=== PATIENT | female | born 1960 | race Caucasian/White ===

== ENCOUNTER 2023-08-06 13:56 | Outpatient (AMB) | payer OTHER, SELFPAY ==
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
== END 2023-08-06 15:02 | disposition home or self-care (01) ==
PROVIDERS: PCP Internal Medicine; Visit Provider Neurological Surgery
DX: M41.56 Other secondary scoliosis, lumbar region (principal); M54.16 Radiculopathy, lumbar region; Z98.1 Arthrodesis status
CPT/HCPCS: 99204

== ENCOUNTER → 2023-08-06 13:56 | Outpatient (BNVA) | payer OTHER, SELFPAY | PROVIDERS: PCP Internal Medicine; Visit Provider Neurological Surgery ==

== ENCOUNTER → 2023-10-29 13:33 | Outpatient (BNVA) | payer OTHER, SELFPAY | PROVIDERS: PCP Internal Medicine; Visit Provider Neurological Surgery ==

== ENCOUNTER 2024-02-18 | Outpatient (REF) | payer OTHER, SELFPAY ==
--- NOTE | 2024-02-18 | ECG_ITS ---
Test Reason : PRE OP Blood Pressure : / mmHG Vent. Rate : 076 BPM Atrial Rate : 076 BPM P-R Int : 174 ms QRS Dur : 088 ms QT Int : 392 ms P-R-T Axes : 065 039 066 degrees QTc Int : 441 ms Normal sinus rhythm Normal ECG No previous ECGs available Referred By: Mariaelena Garcia Electronically Signed By:LISA VASQUEZ
[2024-02-18 12:18] VITALS: BP 111/64; PULSE 82; RESP 18; O2SAT 98; BMI 25.3
--- NOTE | 2024-02-18 12:29 | HO.ANESPROP2 ---
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 PONV: good effect with scopolamine patch OSMANI: cannot tolerate CPAP PMFSH Active Problems Active Problems: All Active Problems Status post cervical spinal fusion (Acute) Lumbar radiculopathy (Acute) Scoliosis of lumbar region due to degenerative disease of spine in adult (Acute) Past Medical History Medical History (Updated 02/18/24 @ 12:15 by Rosio Lin RN) Cold-induced asthma Post-operative nausea and vomiting Thoracic outlet syndrome History of traumatic head injury Sleep apnea Low blood pressure Osteoporosis Renal calculi Degenerative disc disease, lumbar Degenerative disc disease, cervical IBS (irritable bowel syndrome) Fibromyalgia Migraines PTSD (post-traumatic stress disorder) Osteopenia Family History Family history of problems with anesthesia: No Surgical History Surgical History (Updated 02/18/24 @ 12:11 by Rosio Lin RN) Hx of knee surgery Hx of cardiac catheterization Hx of nasal septoplasty History of esophagogastroduodenoscopy (EGD) H/O colonoscopy History of colon resection Hx of appendectomy History of total knee arthroplasty Hx of repair of rotator cuff History of fusion of cervical spine Hx of lithotripsy Hx of cystoscopy Hx of cystoscopy History of Problems with Anesthesia: Yes (PONV) Social History Social History Are you a primary acute care assistant to a significant other at home: No Do you presently have visiting nurse or other home services: No Patient Tobacco Use Status: Never used Tobacco Use of substances other than those prescribed or required for medical reasons: No Have you been hit, kicked, punched, or otherwise hurt by someone within the past year? If so, by whom?: No Spiritual Healthcare Practices: none Scientologist Healthcare Practices: Christian Cultural Healthcare Practices: none Are you DNR?: No Advance Directives Information Provided: Yes (will bring copy DOS) Advance Directives on File: No Recently lost weight without trying: No Eating poorly because of decreased appetite: No Nutrition Risks: No Nutritional Risk FDLMP: n/a : No Poor oral hygiene: No (one crown upper left) Meds Allergies Allergy/AdvReac Type Severity Reaction Status Date / Time oxycodone [OXYCODONE] Allergy Intermediate HYPERACTIVE Unverified 02/18/24 12:13 celecoxib [From Celebrex] Allergy Mild Swelling Verified 02/18/24 12:13 prochlorperazine Allergy Mild DYSTONIA Unverified 11/16/19 17:30 [From Compazine] rofecoxib [From Vioxx] Allergy Mild SWELLING Unverified 11/16/19 17:30 erythromycin base AdvReac Mild DIARRHEA Unverified 11/16/19 17:30 [Erythromycin Base] Sulfa (Sulfonamide AdvReac Mild HEADACHES Unverified 11/16/19 17:30 Antibiotics) [Sulfa (Sulfonamides)] Home Medications ?Medication ?Instructions ?Recorded ?Confirmed ?Last Taken ?Type albuterol sulfate 90 mcg/actuation 1 puff inhalation Q4H PRN wheezing 02/17/24 02/18/24 Unknown History aerosol inhaler baclofen 10 mg tablet 10 mg PO BEDTIME 02/17/24 02/18/24 Unknown History bupropion HCl 300 mg 24 hr tablet, 300 mg PO QAM 02/17/24 02/18/24 Unknown History extended release calcium 600 mg (as carbonate)-vit 1 tab PO BID 02/17/24 02/18/24 Unknown History D3 20 mcg (800 unit) chewable tablet (Caltrate plus D) dextroamphetamine-amphetamine 10 1 tab PO BID 02/17/24 02/18/24 Unknown History mg tablet estradiol 0.025 mg/24 hr 1 patch topical 2XW 02/17/24 02/18/24 Unknown History semiweekly transdermal patch lorazepam 0.5 mg tablet 0.5 mg PO DAILY PRN anxiety 02/17/24 02/18/24 Unknown History magnesium oxide 400 mg PO QAM 02/17/24 02/18/24 Unknown History naproxen 500 mg tablet,delayed 500 mg PO Q12H PRN Pain 02/17/24 02/18/24 Unknown History release riboflavin (vitamin B2) 400 mg 400 mg PO DAILY 02/17/24 02/18/24 Unknown History tablet trazodone 100 mg tablet 100 mg PO BEDTIME 02/17/24 02/18/24 Unknown History tramadol 50 mg tablet 50 mg PO TID PRN pain 02/18/24 02/18/24 Unknown History Exam Height,Weight and Vital Signs: Height 5 ft 3 in Weight 64.7 kg Last Vital Signs Pulse 82 02/18/24 12:18 Resp 18 02/18/24 12:18 BP 111/64 02/18/24 12:18 Pulse Ox 98 02/18/24 12:18 O2 Del Method Room Air 02/18/24 12:18 Pertinent Lab Results Pertinent Lab Results: Lab Results 02/18/24 Range/Units 13:20 Blood Type O Positive Antibody Screen NEGATIVE CBC, BMP, PT/INR, PTT 01/2024 from outside lab WNL Narrative Narrative: EKG 01/2024 Vent. Rate : 076 BPM Atrial Rate : 076 BPM P-R Int : 174 ms QRS Dur : 088 ms QT Int : 392 ms P-R-T Axes : 065 039 066 degrees QTc Int : 441 ms Normal sinus rhythm Normal ECG No previous ECGs available Airway Neck ROM: Limited (s/p cervical fusion) Loose/Missing/Broken Teeth: No (Crowned) Heart: RRR Lungs: CTAB Assessment and Plan Assessment Anesthesia Assessment: Anesthesia Plan Discussed and PAT Visit Final Anesthetic Review Family History of Problems with Anesthesia: No History of Problems with Anesthesia: Yes (PONV)
== END 2024-02-18 00:01 | disposition home or self-care (01) ==
LOC: HO.PAT
PROVIDERS: Visit Provider Neurological Surgery
DX: Z01.818 Encounter for other preprocedural examination (principal); M41.56 Other secondary scoliosis, lumbar region
CPT/HCPCS: 86850; 86900; 86901; 93005

== ENCOUNTER → 2024-02-18 13:37 | Outpatient (BNV) | payer OTHER, SELFPAY | PROVIDERS: Admitting Provider Neurological Surgery; Visit Provider Internal Medicine | DX: M41.56 Other secondary scoliosis, lumbar region (principal); Z01.810 Encounter for preprocedural cardiovascular examination | CPT/HCPCS: 93010 ==

== ENCOUNTER 2024-07-04 14:25 | Outpatient (AMB) | payer OTHER, SELFPAY ==
--- NOTE | 2024-07-04 14:36 | A.SPINEOV_ITS ---
Intake Visit Reasons: Discuss sx Intake Note: Mrs. Spence is here to Discuss Surgery. 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: No Allergies oxycodone [OXYCODONE] Allergy (Intermediate, Verified 07/04/24 14:36) HYPERACTIVE celecoxib [From Celebrex] Allergy (Mild, Verified 07/04/24 14:36) Swelling prochlorperazine [From Compazine] Allergy (Mild, Verified 07/04/24 14:36) DYSTONIA rofecoxib [From Vioxx] Allergy (Mild, Verified 07/04/24 14:36) SWELLING erythromycin base [Erythromycin Base] Adverse Reaction (Mild, Verified 07/04/24 14:36) DIARRHEA Sulfa (Sulfonamide Antibiotics) [Sulfa (Sulfonamides)] Adverse Reaction (Mild, Verified 07/04/24 14:36) HEADACHES Assessment & Plan Assessment & Plan (1) Scoliosis of lumbar region due to degenerative disease of spine in adult: Code(s): M41.56 - Other secondary scoliosis, lumbar region Category: Medical Plan Karoline is a pleasant 64-year-old female previously evaluated by Dr. Mirza. He offered her a L3-4, L4-5 transkambin lumbar fusion. She comes in today with her significant other to asked several questions that she had prior to her surgery which is currently scheduled for 07/18/2024. They wanted to review the surgical procedure again, and asked several questions regarding the difference between surgery versus conservative measures such as intercept or MILD procedures. I extensively explained the surgery using her spine models in office. We also discussed the possibility of postoperative leg pain with the transkambin lumbar fusion approach. She reports that her and Dr. Mirza did discuss that she would not be a good candidate for OLIF as she has had several different abdominal surgeries including bowel resection. She understands that there is about a 33% chance of transient postoperative leg pain for L3-4, and about a 40% chance of transient postoperative leg pain with a L4-5. I answered all of her questions to the best of my ability. She wishes to proceed with surgery as planned. Brennen Mirza MD,PhD [facility] Coding Level of Care Code Est Pt Level 3 (85685) Diagnoses Scoliosis of lumbar region due to degenerative disease of spine in adult M41.56
--- OUTSIDE RECORDS SUMMARY | 2024-07-04 15:45 | XMS_ITS ---
Author Name [facility] Organization Unknown History of Medication Use Medication Directions Dispensed Refills Start Date End Date Stat doxycycline hyclate 50 mg capsule TAKE 1 CAPSULE BY MOUTH TWICE DAILY active escitalopram 10 mg tablet TAKE 1 TABLET BY MOUTH DAILY active hyoscyamine 0.125 mg sublingual tablet DISSOLVE 1 TABLET UNDER THE TONGUE TWICE DAILY NEEDED active Lyllana 0.025 mg/24 hr transdermal patch APPLY 1 PATCH TOPICALLY TO THE SKIN 2 TIMES A WEEK active omeprazole 20 mg capsule,delayed release TAKE 1 CAPSULE BY MOUTH TWICE DAILY active tramadol 50 mg tablet TAKE 1 TABLET BY MOUTH THREE TIMES DAILY NEEDED FOR PAIN active Vitamin B-2 100 mg tablet TAKE 4 TABLETS BY MOUTH EVERY DAY active Encounters Encounter Type Encounter Reason Primary Diagnosis Location Date Ambulatory [facility] 03/09/2023 Ambulatory [facility] 02/02/2023 Ambulatory [facility] 12/29/2022 Ambulatory [facility] 12/29/2022 Ambulatory [facility] 10/23/2022 Ambulatory [facility] 10/23/2022 Ambulatory [facility] 10/23/2022 Ambulatory [facility] 10/22/2022 Ambulatory [facility] 10/21/2022 Ambulatory [facility] 05/06/2022
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
--- OUTSIDE RECORDS SUMMARY | 2024-07-04 15:46 | XMS_ITS | Clinical Summary ---
Author Organization [facility] Address [address] [place] [address] Care Team Providers Care Relocation Coordinator Name Role Phone Kuldeep Russell MD Primary Care Provider [phone] Allergies Active Allergy Reactions Criticality Noted Date Comments Macrolides And Ketolides Other (See Comments) 11/24/2004 Oxycodone Other (See Comments) 02/08/2015 hyper Prochlorperazine 12/13/2009 Other reaction(s): Dystonia Rofecoxib Swelling 03/10/2012 Sulfa Antibiotics Other (See Comments) 11/24/2004 Medications Medication Sig Dispensed Refills Start Date End Date Status amphetamine-dextroamp hetamine (ADDERALL) 10 MG tablet TK 1 T PO BID 0 01/17/2020 Active baclofen (LIORESAL) 10 MG tablet TK 1 T PO 1 TIME A DAY PRN 0 01/11/2020 Active buPROPion (WELLBUTRIN XL) 300 MG 24 hr tablet TK 1 T PO D 0 11/28/2019 Active LINZESS 72 MCG CAPS TK 1 C PO QAM 0 12/19/2019 Ac tive LORazepam (ATIVAN) 0.5 MG tablet TK 1 T PO QD PRA 0 01/12/[address] 500 MG EC tablet TK 1 T PO BID PRF PAIN 0 01/23/2020 Active omeprazole (PriLOSEC) 20 MG capsule TK 1 C PO QD 0 01/22/2020 Active Riboflavin 400 MG TABS TK 1 T PO D 0 11/14/2019 Active traZODone (DESYREL) 100 MG tablet TK 1 T PO QHS 0 12/27/2019 Active magnesium oxide (MAG-OX) 400 MG tablet Take 1 tablet by mouth daily. 0 01/22/2021 Active gabapentin (Neurontin) 300 MG capsule Take 300mg for 3 days at bedtime. Please start 1 night prior to surgery 3 capsule 0 03/04/2021 Active HYDROcodone-acetamino phen (NORCO) 5-325 MG per tablet Take 1 tablet by mouth every 6 (six) hours as needed for pain. Do not start until after surgery 30 tablet 0 04/16/2021 Active Active Problems Problem Noted Date Diagnosed Date Articular cartilage disorder of knee 07/01/2020 Status post total right knee replacement 016 Osteoarthritis of right knee 05/28/2015 Acute pain of right knee 02/08/2015 Pain 03/10/2012 Overview: Pain Social History Tobacco Use Types Packs/Day Years Used Date Smoking Tobacco: Never Smokeless Tobacco: Never Sex and Gender Information Value Date Recorded Sex Assigned at Not on file Gender Identity Not on file Sexual Orientation Not on file Job Start Date Occupation Industry Not on file Not on file Not on file Last Filed Vital Signs Vital Sign Reading Time Taken Comments Blood Pressure - - Pulse - - Temperature - - Respiratory Rate - - Oxygen Saturation - - Inhaled Oxygen Concentration - - Weight 83.9 kg (185 lb) 09/22/2021 1:27 PM EDT Height 160 cm (5' 3 ) 09/22/2021 1:27 PM EDT Body Mass Index 32.77 09/22/2021 1:27 PM EDT Plan of Treatment Health Maintenance Due Date Last Done Comments Hepatitis C Screening 1960 COVID-19 Vaccine (#1) 1962 Depression Screening 1974 BMI Counseling 1980 Preventative Health Evaluation 1980 DTap / Tdap / Td (1 - Tdap) 1981 Cervical Cancer Screening (P ap Smear) 06/18/1983 Colon Cancer Screening (Colonoscopy) 06/18/2007 Breast Cancer Screening (Mammogram) 2012 Shingrix-Zoster Vaccine (1 of 2) 2012 Influenza Vaccine (#1) 2023 RSV Adult > 60+ Yrs or Pregn ant (1 - 1-dose 75+ series) 2037 Hepatitis B Vaccines Aged Out No long er eligible based on patient's age to complete this topic Pneumococcal Vaccine Aged Out No long er eligible based on patient's age to complete this topic RSV Ped < 20 months Aged Out No longe r eligible based on patient's age to complete this topic Care Teams Relocation Coordinator Relationship Specialty Start Date End Date Kuldeep Russell MD [address] [place] [address], [place] [address] PCP - General Internal Medicine 02/06/20
== END 2024-07-04 15:42 | disposition home or self-care (01) ==
LOC: HO.HNS 14:33
PROVIDERS: Visit Provider Physician Assistant
DX: M41.56 Other secondary scoliosis, lumbar region (principal)
CPT/HCPCS: 99213

== ENCOUNTER 2024-07-18 09:14 | Inpatient (IN) | payer OTHER, SELFPAY ==
[2024-07-14 12:15] VITALS: BP 97/51; PULSE 76; RESP 20; O2SAT 98; BMI 23.4
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
[2024-07-18] VITALS (9 sets, daily range): BP systolic 118–149; BP diastolic 66–78; PULSE 68–74; RESP 14–18; TEMP 36–36.4; O2SAT 94–98; BMI 24.6
--- NOTE | ~2024-07-18 | FL_ITS ---
EXAMINATION: FL GUIDANCE ONLY HISTORY: L3-L5 Transkambin Lumbar Interbody Fusion COMPARISON: None available. TECHNIQUE: Fluoroscopy time: 3.69 minutes. Cumulative Dose: 152 mGy. DAP: 50.28 mGym2 Images: 5. FINDINGS: AP and lateral fluoroscopic spot films of the lumbar spine demonstrate posterior fusion of L3-L5 with pedicle screws, spinal stabilization rods, and intervertebral spacers. FL/FL guidance in OR IMPRESSION: Fluoroscopy during procedure. Please see procedure report for additional information. Electronically signed by: Royce Varner MD 07/19/2024 07:16 AM EDT
--- NOTE | ~2024-07-18 | CT_ITS ---
CLINICAL HISTORY: s p lumbar fusion CT lumbar spine without contrast Comparison: None Findings: Spinal fusion hardware spans from L3-L5. Posterior spinal fusion rods and paired pedicle screws are identified at those levels. Interbody cage devices are seen at L3-4 and L4-5. No fracture of the surgical hardware. Posterolateral bone graft material has been placed. This is more posteriorly located on the right than on the left. On the right, extends into the posterior right paraspinal musculature in areas of the subcutaneous fat. Moderate convex left lumbar curvature with apex at L2-3. No acute fracture. Mild atelectasis within the visualized portion of the lung bases. No pleural effusion or pneumothorax. Prominent gaseous distention of the stomach measuring 20.0 x 11.2 cm in size. IMPRESSION: 1. Postoperative changes as above. 2. Marked gaseous distention of the stomach, possibly related to postoperative ileus. Correlation with any clinical findings to suggest gastric outlet obstruction is suggested. This document has been electronically signed by: Benjie Maza MD on 07/20/2024 09:54:09
[2024-07-18] MEDS: Lactated Ringers 500 ML 999 ML IV (09:52)
[2024-07-18] MEDS: Scopolamine 1.5 MG PATCH.TD.3 TRANSDERMA (09:52)
[2024-07-18] MEDS: Gabapentin 300 MG CAPSULE PO (09:53)
[2024-07-18] MEDS: methocarbamoL 750 MG TABLET PO (09:53)
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
--- OUTSIDE RECORDS SUMMARY | 2024-07-18 10:25 | XMS_ITS | Clinical Summary ---
Author Organization [facility] Address [address] [place] [address] Care Team Providers Care Cloth Dyeing Range Tender Name Role Phone Kuldeep Russell MD Primary Care Provider Allergies Active Allergy Reactions Criticality Noted Date [...] age to complete this topic Care Teams Cloth Dyeing Range Tender Relationship Specialty Start Date End Date Kuldeep Russell MD [address] [place] [address], [place] [address] PCP - General Internal Medicine 02/06/20
[2024-07-18] MEDS: Lactated Ringers 1,000 ML 100 ML IVCONT (11:13)
--- NOTE | 2024-07-18 12:35 | MHC.SHP ---
Pre-Procedural Eval Section A - 24 Hr Update-Section A only Date of Service: 07/18/24 The patient is an INPATIENT: No Changes since office visit: No Cold of Flu in the past 2 weeks, No New Medical Problems, No Changes in Medication and No Patient answered all questions The patient has been examined within 24 hours of the surgical procedure. The History & Physical has been completed within 30 days and I have reviewed it.: No Section B - Complete if H&P > 30 days Chief Complaint: S/P L3-5 Lumbar Fusion Allergies: Allergies Allergy/AdvReac Type Severity Reaction Status Date / Time oxycodone [OXYCODONE] Allergy Intermediate HYPERACTIVE Verified 07/18/24 09:36 (can have dilaudid, hydrocodone) celecoxib [From Celebrex] Allergy Mild Swelling Verified 07/18/24 09:36 prochlorperazine Allergy Mild DYSTONIA Verified 07/18/24 09:36 [From Compazine] rofecoxib [From Vioxx] Allergy Mild SWELLING Verified 07/18/24 09:36 erythromycin base AdvReac Mild DIARRHEA Verified 07/18/24 09:36 [Erythromycin Base] Sulfa (Sulfonamide AdvReac Mild HEADACHES Verified 07/18/24 09:36 Antibiotics) [Sulfa (Sulfonamides)] Review of Systems Sugical H&P ROS: Negative: Constitution, Cardiovascular, Respiratory, Neurological, Psychiatric, Hem-Onc, Allergic/Immunologic, Gastrointestinal, Genitourinary, Musculoskeletal, Integumentary, Endocrine and Eyes/Ears/Nose/Throat Exam Surgical H&P Exam: Normal: HEENT, Normal: Heart, Normal: Lungs, Normal: Extremities, Normal: Abdomen, Normal: Skin and Normal: Neurological (awake, alert,oriented x 3 ) Plan Diagnosis/Plan: Unchanged L3-4, L4-5 transkambin lumbar interbody fusion Time Spent With Patient Time: Total time managing care of this patient today __5__ minutes.
[2024-07-18] MEDS: ceFAZolin Sodium/Dextrose,Iso 2 GM/50 ML PIGGYBACK IV ×2 (14:00→19:03)
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
[2024-07-18] MEDS: Ketorolac Tromethamine 15 MG/ML VIAL IVPUSH (18:05)
[2024-07-18] MEDS: 0.9 % Sodium Chloride 1,000 ML 75 ML IVCONT (19:01)
[2024-07-18] MEDS: HYDROmorphone HCl 2 MG TABLET PO (19:10)
[2024-07-18] MEDS: Calcium + Vitamin D 250 MG TABLET PO (19:10)
[2024-07-18] MEDS: Amphetamine Mixed Salts 10 MG TABLET PO (19:11)
[2024-07-18] MEDS: Magnesium Oxide 400 MG TABLET PO (19:11)
[2024-07-18] MEDS: Baclofen 10 MG TABLET PO (19:11)
[2024-07-18] MEDS: Multivitamin TABLET 1 TAB PO (19:11)
[2024-07-18] MEDS: Docusate Sodium 100 MG CAPSULE PO (19:11)
[2024-07-18] MEDS: HYDROmorphone HCl 1 MG/ML SYRINGE IVPUSH (22:06)
[2024-07-18] MEDS: Acetaminophen 1,000 MG/100 ML PIGGYBACK 400 MG IV (22:36)
[2024-07-19] VITALS (7 sets, daily range): BP systolic 98–154; BP diastolic 53–70; PULSE 66–85; RESP 14–18; TEMP 36.1–37.2; O2SAT 93–98
[2024-07-19] MEDS: Ketorolac Tromethamine 15 MG/ML VIAL IVPUSH ×4 (00:51→23:46)
[2024-07-19] MEDS: HYDROmorphone HCl 2 MG TABLET 4 MG PO ×2 (02:30→17:00)
[2024-07-19] MEDS: ceFAZolin Sodium/Dextrose,Iso 2 GM/50 ML PIGGYBACK IV ×2 (02:37→08:01)
[2024-07-19] MEDS: Acetaminophen 1,000 MG/100 ML PIGGYBACK 400 MG IV ×4 (04:23→22:30)
[2024-07-19] MEDS: HYDROmorphone HCl 2 MG TABLET PO ×3 (05:11→21:03)
--- NOTE | 2024-07-19 06:00 | PC.NURSE ---
pt was able to ambulate to commode with 1 assist with walker. Increased pain throughout the night, controlled with PRN meds and scheduled meds, & repositioning, Pt swapped between heat pack an ice throughout the night. pt reassured that the pain is normal and to be expected. VSS, call christiansen within reach.
[2024-07-19] MEDS: methocarbamoL 750 MG TABLET PO ×2 (06:23→21:04)
--- NOTE | 2024-07-19 06:51 | HO.NEUROPN_ITS ---
Neurosurgery Operative Note Date of Service: 07/19/24 Narrative: POD: 1 Procedure: L3-5 TKLIF Karoline is a pleasant 64 year old female who underwent uncomplicated L3-[address] Mirza yesterday. She reports she has been up OOB, walking around with assistance but has been having some trouble with pain control. She feels her preoperative complaint of chronic back pain the intermittently radiates to her right leg is overall better than it was prior to surgery, however since surgery she has had pain in her left leg develop near the leftl lateral thigh. She does get good relief of her pain with current pain regimen. She denies any new weakness or numbness. She is voiding well without a sheets, and tolerating her current diet. Afebrile, vital signs stable. Full strength 5/5 LE's. Back dressings have some staining without signs of hematoma. No active sanguineous drainage. Area is dry. Plan: Pleasant 64 year old female who underwent uncomplicated L3-5 Transkambin lumbar fusion with Dr. Mirza yesterday. She is currently having a hard time getting her pain under control per her report. She is also dealing with some new left leg pain likely secondary to the surgical approach. This should be transient. For the time being she will remain admitted to [address] [place] [address] for recovery, pain management, and further evaluation. I would like PT to see her this morning and try and mobilize her. We will check back in with her later today. This plan was discussed with the attending neurosurgeon Dr. Mirza who is in agreement. Brennen Mirza MD,PhD [facility]
--- NOTE | 2024-07-19 06:54 | PM.DS ---
DS: Providers Provider Date of Service: 07/20/24 Date of admission: 07/18/24 09:14 Date of discharge: 07/20/24 Primary care physician: RASHID WOODRUFF DO DS: Summary Time Attestation Discharge Coordination Time (in mins): 12 Quality: Safe Use of Opioids Does Pt have an Active Cancer Diagnosis on the Problem List?: No Quality: Stroke Does the patient have a stroke diagnosis?: No Physical Exam Vital Signs: Vital Signs: Last Vital Signs Temp 97.6 F 07/19/24 03:47 Pulse 67 07/19/24 03:47 Resp 18 07/19/24 03:47 BP 135/70 07/19/24 03:47 Pulse Ox 97 07/19/24 03:47 O2 Del Method Room Air 07/19/24 03:47 O2 Flow Rate 0 07/18/24 18:20 BMI result Body Mass Index 24.6 Discharge Plan Discharge Anticipated Discharge Date/Time: 07/19/24 06:54 Patient Disposition: Home, Self-Care Discharge Diagnosis: s/p L3-5 TKLIF Referrals: RASHID WOODRUFF [Primary Care Provider] - 1 Week Discharge Medications: New oxycodone 5 mg tablet See Rx Instructions .ROUTE .COMPLEX PRN (Reason: pain) Qty: 30 0RF Rx Instructions: Take 1-2 tablets by mouth every 4 hours. Partial Fill upon patient request. hydroxyzine HCl 25 mg tablet 25 mg PO TID PRN (Reason: inflammation ) Qty: 30 0RF gabapentin 100 mg capsule 100 mg PO TID PRN (Reason: nerve pain) Qty: 30 0RF methocarbamol 750 mg tablet 750 mg PO TID PRN (Reason: muscle spasms) Qty: 30 0RF Continued multivitamin Tablet 1 tab PO QAM dextroamphetamine-amphetamine 10 mg tablet 1 tab PO BID lorazepam 0.5 mg tablet 0.5 mg PO DAILY PRN (Reason: anxiety) trazodone 100 mg tablet 100 mg PO BEDTIME baclofen 10 mg tablet 10 mg PO TID naproxen 500 mg tablet,delayed release (DR/EC) 500 mg PO Q12H PRN (Reason: Pain) estradiol 0.025 mg/24 hr patch semiweekly 1 patch topical 2XW bupropion HCl 300 mg tablet extended release 24 hr 300 mg PO QAM Caltrate 600 plus D 600 mg-20 mcg (800 unit) Tablet,Chewable 2 tab PO QPM riboflavin (vitamin B2) 400 mg Tablet 400 mg PO DAILY magnesium oxide 400 mg magnesium Tablet 400 mg PO QAM Held tramadol 50 mg tablet 50 mg PO TID PRN (Reason: pain) Hold Instructions: Resume on 08/02/24. may resume when postoperative oxycodone is complete Discharge Orders: Discharge Order (Routine); Ordered 07/20/24 Ordered By: Brennen Richter Diet: Advance to usual diet Activity on Discharge: As tolerated Stand Alone Forms: Patient Portal Discharge page Print Language: Indonesian Activity Restrictions/Additional Instructions: After your spinal surgery we ask you to observe the following restrictions/guidelines: Activity: It is normal to feel some discomfort as you increase your activity, but that will improve with time. We ask you avoid heavy lifting or acitivities that cause pain. As a general rule, 8lbs is a safe limit for lifting right after surgery. Walk as much as you feel comfortable but not to exhaustion. You will feel extra tired the first few days after surgery. Stay well hydrated. It is OK to walk up and down stairs You may return to driving when you are off narcotics (such as vicodin, oxycodone, dilaudid, etc), and you are back to normal functional capacity. If you have any concerns please check with office before driving. Return to work is specific to each patient and each surgery, so please speak with your doctor/PA at first follow up. Please bring paperwork such as FMLA at that time if you need it filled out. Medications: Please hold your Tramadol until you have completed your postoperative Oxycodone course. We recommend you take 1,000mg Tylenol every 8 hours for the first few weeks after surgery, if you do not have any liver issues and can tolerate this medication. Do not exceed 4,000mg daily. We will be prescribing you a course of gabapentin 300 mg t.i.d. to be taken for the 1st couple of weeks after surgery as needed for nerve pain. We will also be prescribing methocarbamol 750 mg t.i.d. to be taken as needed for muscle spasms. In addition to this we will be sending in a course of hydroxyzine 25 mg t.i.d. to be taken as needed for nerve pain and inflammation reduction. We will give you a short supply of narcotics after surgery (usually one weeks worth). If you need more please call the office but do not use more than prescribed. You will need to give our office 48 hours notice if you need narcotics refilled and we do not fill narcotics on weekends or evenings. If you are on a narcotic, it is a good idea to take a stool softener such as colace or senna to avoid constipation If you take blood thinner such as aspirin, Plavix, Coumadin, Effient, Eliquis etc for conditions such as Afib, DVT, Pulmonary embolus, coronary disease, stents etc please speak with your surgeon about specific details as to when you can resume these medications. You can resume NSAIDs on post op day 1 (eg: Motrin, Naproxen, etc). Follow up: Please call the office, , after surgery to arrange a 3 week follow up for wound check. Wound Care: You may remove your dressing on the first day after surgery. ?You may ?leave open to air. Please do not remove the steri strips underneath. they will fall off on their own in one week. IT IS NORMAL FOR THE WOUND TO OOZE OR BE BLOODY FOR A FEW DAYS AFTER SURGERY. ?IF THIS HAPPENS JUST PLACE NEW DRESSING OVER IT TO AVOID STAINING CLOTHES. You may shower on post op day # 1 We ask that you do not let the water soak the wound. If it does get wet, just towel dry lightly. Please do not scrub your incision or place any type of chemical/ointment on the wound. No tub baths, pools or jacuzzis for one month. If you have any leaking or redness from your wound, or fevers, please call the office. Care Plan Goals: Return to normal activity as tolerated Health Concerns: None Plan of Treatment: Follow-up in clinic in 2-3 weeks Assessment: POD: 2 Procedure: L3-5 TKLIF Karoline is a pleasant 64 year old female who underwent uncomplicated L3-5 Transk[address] lumbar fusion with Dr. Mirza 07/18/24. She reports she is up OOB, walking around is otherwise doing well. She feels her preoperative complaint of chronic back pain that intermittently radiates to her right leg is overall better than it was prior to surgery. She does report new left lateral thigh pain. She also still reports mild low back pain with good relief with pain medication. She is voiding well without a sheets, and tolerating her current diet. Afebrile, vital signs stable. Full strength 5/5 LE's. Back dressings have some staining without signs of hematoma. No active sanguineous drainage. Area is dry. 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 She initially said she wants to go home, then said she wants inpatient rehab, then again said she wants to go home. Dr. Mirza and I believe she is a good candidate to DC home with family support via her . I will send her medications in to the pharmacy here at [facility]. She may follow up with us in clinic in 2-3 weeks. Brennen Mirza MD,PhD [facility]
[2024-07-19] MEDS: Baclofen 10 MG TABLET PO ×3 (08:01→21:04)
[2024-07-19] MEDS: Magnesium Oxide 400 MG TABLET PO (08:01)
[2024-07-19] MEDS: Docusate Sodium 100 MG CAPSULE PO ×2 (08:01→21:04)
[2024-07-19] MEDS: Amphetamine Mixed Salts 10 MG TABLET PO (08:01)
[2024-07-19] MEDS: Multivitamin TABLET 1 TAB PO (08:01)
[2024-07-19] MEDS: buPROPion HCl XL 300 MG TAB.ER.24H PO (08:01)
[2024-07-19] MEDS: HYDROmorphone HCl 1 MG/ML SYRINGE IVPUSH ×2 (08:07→22:28)
--- NOTE | 2024-07-19 10:00 | HO.POSTANES ---
Post Anesthesia Evaluation Post Anesthesia Evaluation Date of Service: 07/19/24 Vital Signs: Vital Signs Temp Pulse Resp BP Pulse Ox O2 Del Method 07/19/24 09:49 66 154/70 H 98 07/19/24 07:31 97 F 66 17 154/70 H 98 Room Air 07/19/24 03:47 97.6 F 67 18 135/70 97 Room Air 07/18/24 23:02 97.6 F 73 18 142/69 H 95 Room Air Anesthesia: General Endotracheal-GETA Mental Status: Awake Pain Control: Satisfactory Nausea/Vomiting: None Hydration: Adequate Anesthesia-Related Issues: No Anes. Related Issues
--- NOTE | 2024-07-19 11:26 | PHA.MEDREC ---
Pharmacy Consult ? Medication Reconciliation Pharmacy has completed the medication reconciliation. Reviewed the med rec completed by nursing. Confirmed all medications with patient. Pt was very lethrgic and dozing off, but this [facility] was able to complete the med list with the patient. She does not have specific days of the week for the estrdiol patch, she takes it 2 times a week when she remembers to take this.
[2024-07-19] MEDS: ondansetron HCL 4 MG/2 ML VIAL IVPUSH (12:18)
--- NOTE | 2024-07-19 15:21 | MHC.CM.PN ---
pt lives with others pt has a ride rachel is indepedent and working dc plan home n/s
[2024-07-19] MEDS: Sennosides 8.6 MG TABLET 17.2 MG PO (17:00)
[2024-07-19] MEDS: Calcium + Vitamin D 250 MG TABLET PO (21:04)
[2024-07-19] MEDS: LORazepam 0.5 MG TABLET PO (23:46)
[2024-07-20 04:00] VITALS: BP 127/69; PULSE 84; RESP 18; TEMP 36.6; O2SAT 93
[2024-07-20] MEDS: Acetaminophen 1,000 MG/100 ML PIGGYBACK 400 MG IV ×2 (05:28→11:09)
[2024-07-20] MEDS: Ketorolac Tromethamine 15 MG/ML VIAL IVPUSH ×2 (06:02→11:21)
[2024-07-20 07:50] VITALS: BP 121/56; PULSE 83; RESP 16; TEMP 36.8; O2SAT 96
[2024-07-20 08:35] VITALS: BP 121/56; PULSE 83; O2SAT 96
[2024-07-20] MEDS: HYDROmorphone HCl 2 MG TABLET PO (08:40)
[2024-07-20] MEDS: buPROPion HCl XL 300 MG TAB.ER.24H PO (08:51)
[2024-07-20] MEDS: Docusate Sodium 100 MG CAPSULE PO (08:51)
[2024-07-20] MEDS: Baclofen 10 MG TABLET PO (08:51)
[2024-07-20] MEDS: Multivitamin TABLET 1 TAB PO (08:51)
[2024-07-20] MEDS: Amphetamine Mixed Salts 10 MG TABLET PO (08:51)
[2024-07-20] MEDS: Magnesium Oxide 400 MG TABLET PO (08:51)
--- NOTE | 2024-07-20 09:27 | MHC.CM.PN ---
Addendum entered by Mireya Samaniego 07/21/24 08:37: CM RETURNED TO PT TO PRESENT BED OFFERS AT WHICH TIME PT STATED SHE WANTED TO GO HOME WITH VNA [facility] REFERRALS [facility] INDICATED THEY WERE BOOKING TO 08/06/24 FOR PT SERVICES [facility] CAN PROVIDE SOC ON 07/25/24 NO OTHER [facility]NAS ACCEPTED REFERRAL PT DISCHARGED HOME WITH [facility] FOR PT ON 07/20/24 Original Note: CM MET WITH PT TO DISCUSS DCP PT REPORTS SHE IS WORRIED ABOUT PAIN CONTROL AND HAVING HELP GETTING OUT OF BED PT WAS TEARFUL INTERMITTENTLY AND CHANGED HER MIND BETWEEN HOME AND STR MULTIPLE TIMES PER DISCUSSION, PT AGREES TO REFERRALS BEING MADE TO DETERMINE STR OPTIONS PER PT STATED PREFERENCE, REFERRALS WERE PLACED TO SNFS NEAR HER HOME
--- NOTE | 2024-07-20 09:56 | HO.NEURO.PN ---
Neurosurgery Operative Note Date of Service: 07/20/24 Narrative: POD: 2 Procedure: L3-5 TKLIF Karoline is a pleasant 64 year old female who underwent uncomplicated L3-5 Transkamb[address] lumbar fusion with Dr. Mirza 07/18/24. She was kept overnight again last night, due to concerns regarding pain control and mobility. Today, she reports she has been OOB, walking around, working with PT, and is otherwise doing well. She feels her preoperative complaint of chronic back pain that intermittently radiates to her right leg is overall better than it was prior to surgery. She does report new left lateral thigh pain that has persisted since yesterday. She also still reports mild low back pain with good relief with pain medication. She is voiding well without a sheets, and tolerating her current diet. Afebrile, vital signs reviewed & stable. Well appearing 64 year old female in NAD. Full strength 5/5 of bilateral LE's. Back dressings have some staining without signs of hematoma. No active sanguineous drainage. Area is dry. Plan: Karoline seems rather averse to the idea of returning home, despite her marked improvement with ambulation and functionality observed by our colleagues in PT today. I belive she would benefit from transfer to an inpatient rehabilitation facility given her concerns regarding postoperative weakness and pain control at home. I will send her medications in to [place] pharmacy [place] [facility] [place] Ideally she can pick them up or have them brought to her room before trasnfer. She may follow up with us in clinic in 2-3 weeks. Brennen Mirza MD,PhD [facility]
--- NOTE | 2024-07-20 11:52 | P.F2F_ITS ---
Service Date Service Date: 07/20/24 Encounter Date of encounter: 07/20/24 Reasons for Services Signs and symptoms assessed: S/P L3-5 TKLIF Reason for physical therapy: home safety and mobility, therapeutic exercises, restore joint function, gait/transfer training and ADL training Homebound: Leaving the home is medically contraindicated at this time without the asist of a device and/or another person due th the listed conditions above and below. Reason homebound: unsteady gait / fall risk, leg weakness, pain with ambulation, pain with transfers and weakness related to hospital stay Certification: Based on the above findings, I certify that this patient is confined to the home and needs intermittent penitentiary care, physical therapy and/or speech therapy, or continues to need occupational therapy. The patient is under my care, and I have initiated the establishment of the plan of care. The patient will be followed by a physician who will periodically review the plan of care. Time Spent With Patient Time: Total time managing care of this patient today _12___ minutes.
[2024-07-20 12:00] VITALS: BP 116/62; PULSE 89; RESP 16; TEMP 36.7; O2SAT 100
[2024-07-20 12:58] VITALS: BP 117/56; PULSE 87; RESP 17; TEMP 36.7; O2SAT 96
== END 2024-07-20 13:11 | disposition home health service (06) | DRG 458 ==
LOC: HO.SSSA 13:15 → HO.S3 16:58
PROVIDERS: Neurological Surgery; Admitting Provider Physician Assistant; PCP Internal Medicine; Visit Provider Physician Assistant
PROC: 0SG10A0 Fusion of 2 or more Lumbar Vertebral Joints with Interbody Fusion Device, Anterior Approach, Anterior Column, Open Approach (ICD-10-PCS; CPT 22558; principal; 2024-07-18 11:00)
DX: M54.16 Radiculopathy, lumbar region (principal); M41.56 Other secondary scoliosis, lumbar region; M79.7 Fibromyalgia; Z98.1 Arthrodesis status; Z79.899 Other long term (current) drug therapy
CPT/HCPCS: 22558; 22585; 22612; 22614; 22840; 22853; 63056; 63057; 20930; 72131; 86850; 86900; 86901; 97116; 97162; C1713; C1889; J0131; J0330; J0665; J0666; J0690; J1100; J1171; J1885; J2003; J2405; J2704; J3010; L8699

== ENCOUNTER 2024-07-18 09:14 | Outpatient (BNV) | payer OTHER, SELFPAY | END 2024-07-19 09:58 | PROVIDERS: Admitting Provider Physician Assistant; PCP Internal Medicine; Visit Provider Radiology Diagnostic Radiology | DX: R14.0 Abdominal distension (gaseous) (principal) | CPT/HCPCS: 72131 ==

== ENCOUNTER → 2024-07-18 09:14 | Outpatient (BNV) | payer OTHER, SELFPAY | PROVIDERS: Admitting Provider Physician Assistant; PCP Internal Medicine; Visit Provider Neurological Surgery | DX: M41.86 Other forms of scoliosis, lumbar region (principal); M54.16 Radiculopathy, lumbar region | CPT/HCPCS: 20930; 22558; 22585; 22612; 22614; 22840; 22853; 63056; 63057; 99024 ==

== ENCOUNTER 2024-08-08 13:28 | Outpatient (AMB) | payer OTHER, SELFPAY ==
--- NOTE | 2024-08-08 13:35 | A.SPINEOV_ITS ---
Intake Visit Reasons: 1st post op Intake Note: Ms. Spence is here today for her 1st post op. 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 Allergies oxycodone [OXYCODONE] Allergy (Intermediate, Verified 07/18/24 09:36) HYPERACTIVE (can have dilaudid, hydrocodone) celecoxib [From Celebrex] Allergy (Mild, Verified 07/18/24 09:36) Swelling prochlorperazine [From Compazine] Allergy (Mild, Verified 07/18/24 09:36) DYSTONIA rofecoxib [From Vioxx] Allergy (Mild, Verified 07/18/24 09:36) SWELLING erythromycin base [Erythromycin Base] Adverse Reaction (Mild, Verified 07/18/24 09:36) DIARRHEA Sulfa (Sulfonamide Antibiotics) [Sulfa (Sulfonamides)] Adverse Reaction (Mild, Verified 07/18/24 09:36) HEADACHES Assessment & Plan Assessment & Plan (1) Lumbar radiculopathy: Code(s): M54.16 - Radiculopathy, lumbar region Category: Medical Plan Procedure: L3-4, L4-5 oblique lateral lumbar interbody fusion Karoline is a pleasant 64-year-old female who comes in today for her 1st postoperative visit after having L3-5 transkambin lumbar fusion (right sided approach) completed by Dr. Mirza on 07/18/24. She has had a somewhat complicated postoperative course, and was reporting fairly severe left leg pain after surgery. We had a CT scan of the lumbar spine completed during her admission which showed stable placement of her instrumentation with no notable changes from fluoroscopy x-ray images. Since being discharged home she has continued to report left sided leg pain which she describes as severe in nature since her surgery. She also states that she has a component of hypoesthesia over her medial left thigh. When describing the pain on her left hand side she runs her hand over her low back into the left posterior buttocks, over the left lateral thigh and down toward the left knee. She states that the pain does not travel down any farther than that, and reports no involvement of the foot in regards to her pain. However, she does state that she has a component of weakness as well, and reports that she is unable to fully engage the strength of her left foot and left leg. This has caused her to need a walker to ambulate, which she brought with her to her office visit today. She continues to utilize the baclofen, Dilaudid, and occasional methocarbamol/hydroxyzine. In addition to this she has been supplementing with Naproxen. Thankfully, she is able to sleep at night she takes baclofen, naproxen, and Dilaudid before bed. On examination today she has about 3/5 strength with left-sided plantar flexion & knee flexion (can go antigravity but has no meaningful strength against resistance). Her left-sided iliopsoas testing is about 4/5. The rest of her lower extremity strength is 5/5, including bilateral dorsiflexion & EHL. Her posterior incision sites are closed and well healing. BRITTANY Cabrera has ordered a lumbar MRI for the patient to be completed here at [facility]. This will provide us with the information that we need to make a decision regarding this patient's care. We will follow up with her as soon as her MRI is complete via a phone call. Brennen Mirza MD,PhD [facility] Coding Level of Care Code Global (79849) Diagnoses Lumbar radiculopathy M54.16
== END 2024-08-08 14:09 | disposition home or self-care (01) ==
LOC: HO.HNS 13:28
PROVIDERS: PCP Internal Medicine; Visit Provider Physician Assistant
DX: M54.16 Radiculopathy, lumbar region (principal)
CPT/HCPCS: 99024

== ENCOUNTER → 2024-08-08 13:28 | Outpatient (BNVA) | payer OTHER, SELFPAY | PROVIDERS: PCP Internal Medicine; Visit Provider Physician Assistant ==

== ENCOUNTER 2024-08-13 19:53 | Outpatient (REF) | payer OTHER, SELFPAY ==
--- NOTE | ~2024-08-13 | MR_ITS ---
CLINICAL HISTORY: M54.16 - Radiculopathy, lumbar region MR lumbar spine without gadolinium Comparison: CT/SR - CT LUMBAR SPINE WO IV CON - 07/19/24 09:58 EDT Findings: Moderate levoscoliosis with apex at L3. Postsurgical changes related to L3 through L5 posterior spinal fusion. Moderate paraspinal and subcutaneous edema is noted at this region. Cauda equina and conus medullaris within normal limits. Moderate multilevel spondylosis with degenerative disc desiccation, disc height loss, posterior disc osteophyte complex, and facet arthropathy. At L1-L2, no significant spinal canal or neural foraminal narrowing. At L2-L3, mild spinal canal and mild bilateral neural foraminal narrowing. At L3-L4, mild spinal canal and mild bilateral neural foraminal narrowing. At L4-L5, [id number] spinal canal and moderate bilateral neural foraminal narrowing. At L5-S1, mild spinal canal and mild bilateral neural foraminal narrowing. IMPRESSION: No acute findings. Postsurgical changes related to L3-L5 posterior spinal fusion with moderate dorsal paraspinal and subcutaneous tissue edema. No definite drainable fluid collection or abscess. Moderate multilevel spondylosis most notably at L4-L5 with [id number] spinal canal and moderate bilateral neural foraminal narrowing, as detailed in the findings. This document has been electronically signed by: Angie Ramsay MD on 08/14/2024 19:29:01
== END 2024-08-13 19:54 | disposition home or self-care (01) ==
LOC: HO.MRI 19:53
PROVIDERS: PCP Internal Medicine; Visit Provider Physician Assistant
DX: M54.16 Radiculopathy, lumbar region (principal)
CPT/HCPCS: 72148

== ENCOUNTER → 2024-08-13 19:53 | Outpatient (BNV) | payer OTHER, SELFPAY | PROVIDERS: PCP Internal Medicine; Visit Provider Student in an Organized Health Care Education/Training Program | DX: M47.816 Spondylosis without myelopathy or radiculopathy, lumbar region (principal) | CPT/HCPCS: 72148 ==

== ENCOUNTER 2024-08-17 13:41 | Outpatient (AMB) | payer OTHER, SELFPAY ==
--- NOTE | 2024-08-17 13:43 | A.SPINEOV_ITS ---
Intake Visit Reasons: Discuss MRI results Intake Note: Mrs. Spence is here today to discuss the results to her MRI. 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 Allergies oxycodone (OXYCODONE) Allergy (Intermediate, Verified 08/17/24 13:44) HYPERACTIVE (can have dilaudid, hydrocodone) celecoxib (From Celebrex) Allergy (Mild, Verified 08/17/24 13:44) Swelling prochlorperazine (From Compazine) Allergy (Mild, Verified 08/17/24 13:44) DYSTONIA rofecoxib (From Vioxx) Allergy (Mild, Verified 08/17/24 13:44) SWELLING erythromycin base (Erythromycin Base) Adverse Reaction (Mild, Verified 08/17/24 13:44) DIARRHEA Sulfa (Sulfonamide Antibiotics) (Sulfa (Sulfonamides)) Adverse Reaction (Mild, Verified 08/17/24 13:44) HEADACHES Assessment & Plan Assessment & Plan (1) Acute left lumbar radiculopathy: Code(s): M54.16 - Radiculopathy, lumbar region Category: Medical Plan Dear colleague, On 08/17/2024, I saw Karoline Spence. She is accompanied by her . She underwent an L3-L5 lumbar fusion on 07/18/2024 for deformity and right lumbar radiculopathy. She responded well to that surgery. However she developed a left radiculopathy in L5 distribution. On exam, there is a grade 4- out of 5 iliopsoas weakness and a 4+ out of 5 weakness of the dorsiflexors on the left side and numbness on the lateral part of her left thigh. We decided to repeat an MRI of the lumbar spine which shows severe left L5 foraminal stenosis. I explained to the patient that most likely due to the cage placements at L3-4 and L4-5 the preexisted L5 foraminal stenosis have become worse producing a left L5 radiculopathy with neurological deficits. She is taking gabapentin Dilaudid for pain control but despite this medication the pain is still severe. She is currently in physical therapy and attempts to do her exercises. She is limited due to pain. I offered her a left L5 foraminotomy and an extension of the previous fusion to S1 on the left side. The reason for the extension of the fusion is to prevent collapse of the L5 foramen after the decompression is done. We discussed the procedure in detail and expected postoperative course. She wants to proceed. She will be tentatively scheduled for 09/13/2024. I spent 25 minutes in his consult. Arthur Mirza MD, PhD Spine Fellowship Trained Neurosurgeon Director, [facility] Coding Level of Care Code Est Pt Level 3 (58590) Diagnoses Acute left lumbar radiculopathy M54.16
== END 2024-08-17 14:29 | disposition home or self-care (01) ==
LOC: HO.HNS 13:41
PROVIDERS: PCP Internal Medicine; Visit Provider Neurological Surgery
DX: M54.16 Radiculopathy, lumbar region (principal)
CPT/HCPCS: 99213